=== PATIENT | female | born 1960 | race African-American/Black ===

== ENCOUNTER → 2016-11-28 | Outpatient (REF) | payer OTHER ==
[2016-11-28 11:13] LABS: BILIRUBIN,URINE Negative (Negative); CLARITY,URINE Clear; COLOR,URINE Yellow; GLUCOSE, URINE (UA) Negative (Negative); LEUKOCYTE ESTERASE ,URINE Negative (Negative); PH,URINE 6.5 (5.0 - 8.0); UROBILINOGEN,URINE 0.2 mg/dL (0.2-1.0)
[2016-11-28 11:16] LABS: ALBUMIN 4.9 g/dL (3.4-5.0); ANION GAP 18.4 MEQ/L (3-15); TOTAL PROTEIN 8.5 g/dL (6.4-8.5)
[2016-11-28 11:23] LABS: BASOPHILS % (AUTO) 0 % (0-2); EOSINOPHILS # (AUTO) 0.3 10^3uL; EOSINOPHILS % (AUTO) 4 % (0-4); LYMPHOCYTES # (AUTO) 1.2 X10^3; MEAN CORPUSCULAR HEMOGLOBIN 30.5 PG (26.0-34.0); MEAN CORPUSCULAR HGB CONC 34.4 g/dL (31.0-37.0); MEAN CORPUSCULAR VOLUME 88 FL (80-100); MEAN PLATELET VOLUME 12.2 FL (6.0-9.5); MONOCYTES # (AUTO) 0.6 X10^3; MONOCYTES % (AUTO) 9 % (3-11); NEUTROPHILS # (AUTO) 4.7 X10^3; NEUTROPHILS % (AUTO) 69 % (51-67); PLATELET COUNT 231 10^3uL (150-450); WHITE BLOOD COUNT 6.82 10^3uL (4.0-11.0)
== END ==
LOC: LAB 10:50
PROVIDERS: ATTEND Family Medicine
DX: Z00.00 Encounter for general adult medical examination without abnormal findings (principal); I10 Essential (primary) hypertension; F43.21 Adjustment disorder with depressed mood; C50.112 Malignant neoplasm of central portion of left female breast; M81.0 Age-related osteoporosis without current pathological fracture
CPT/HCPCS: 80053; 80061; 81003; 84443; 85025

== ENCOUNTER → 2017-01-08 | Outpatient (CLI) | payer OTHER ==
--- NOTE | 2017-01-08 17:35 | Diagnostic Imaging Report ---
INDICATION: Fall with left-sided rib pain. AP and oblique views of the left ribs are obtained. FINDINGS: No fracture or acute bony abnormality is seen. IMPRESSION: Negative left ribs. Dictated by: Dictated on workstation # [id number]
--- NOTE | 2017-01-08 17:38 | Diagnostic Imaging Report ---
INDICATION: Shortness of breath. PA and lateral chest obtained at 4:37 p.m. FINDINGS: Heart and mediastinal silhouette are normal in appearance. There is some linear scarring or atelectasis in left base. There is no pneumothorax. There is a questionable nodular density versus artifact overlying the left perihilar region, suggest either short-term followup or chest CT as clinically warranted. This is not well seen on the lateral view. IMPRESSION: No pneumothorax or pleural fluid. There is some linear scarring or atelectasis in the left lung base. There is a questionable nodular density versus artifact overlying left midlung, recommend a short-term followup chest x-ray or chest CT as clinically warranted. Dictated by: Dictated on workstation # [id number]
== END ==
LOC: RAD 16:17
PROVIDERS: ATTEND Family Medicine
DX: R06.02 Shortness of breath (principal); R07.81 Pleurodynia
CPT/HCPCS: 71020; 71100